=== PATIENT | male | born 1975 | race Caucasian/White ===

== ENCOUNTER 2024-09-16 17:48 | Emergency (ER) | payer OTHER, SELFPAY ==
[2024-09-16 18:12] VITALS: BP 115/78
--- NOTE | 2024-09-16 18:19 | ED.GENMED ---
ED Provider Triage
<Florence Santiago PA-C - Last Filed: 09/16/24 18:21>
-
Patient seen by provider in Triage?: Seen in Triage
Attestation: A medical screening examination has been initiated by a qualified medical provider. Based on the assessment performed at this time, it has been determined that an emergent medical condition may exist and the patient has been informed
that further medical evaluation and possible additional diagnostic testing may be needed.
HPI: 49yoM here with vomiting, abd cramping, increased colostomy output x 3 days. Also feeling warm the past few days. +Sick contacts. Hx of colorectal cancer s/p resection with colostomy in place.
GENERAL: Alert , in no apparent distress
EYE: No visual abnormalities.
NECK: Trachea midline
ENT: No visible abnormalities.
LUNGS: No acute respiratory distress
NEUROLOGICAL: Alert and oriented
SKIN: Skin intact. No visible changes.
MUSCULOSKELETAL: Moving extremities normally
PSYCH: Normal and appropriate interaction.
This is a medical evaluation conducted in person to initiate diagnostic evaluation and provide initial therapeutics. Please see further documentation by the treating clinician.
Abdominal labs, magnesium, COVID/flu swab ordered.
History of Present Illness
<Florence Santiago PA-C - Last Filed: 09/16/24 18:21>
General
Chief Complaint: Dehydration Symptoms
Time Seen by Provider: 09/16/24 19:25
<Acosta Arteaga DO - Last Filed: 09/17/24 21:43>
History of Present Illness
History of Present Illness:
TIME OF INITIAL ENCOUNTER: 7:30 PM
HPI: Patient has history of colostomy (Crohn's disease, colitis, rectal cancer) and presents due to increased colostomy output and vomiting over the last couple of days. Davy� has similar symptoms. He feels somewhat dehydrated. He has been
having some abdominal cramping.
EXAM:
GENERAL: Well appearing in no distress
HEENT: Moist oral mucosa
CARDIOVASCULAR: No murmurs, borderline tachycardic heart rate, regular rhythm, No chest wall tenderness
PULMONARY: No respiratory distress, breath sounds are clear and equal
ABDOMEN: Soft with no peritoneal signs, no tenderness, colostomy bag noted�nearly full, surgical scars noted
NEUROLOGIC: Excellent strength all extremities, no coordination deficits
PSYCHIATRIC: Appropriate mental status, normal insight and judgement
EXTREMITIES: Nontender, no edema, moves all extremities equally
SKIN: No rash, no lesions
NUMBER AND COMPLEXITY OF PROBLEMS ADDRESSED AT THE ENCOUNTER
� Chronic conditions affecting care: Crohn's/colitis, history of rectal cancer
� Acute Exacerbation and/or Progression of Chronic Illness: This is an acute problem
� Differential Diagnosis includes: Diarrhea/vomiting viral illness, foodborne illness, JOE, dehydration, electrolyte abnormality
AMOUNT AND/OR COMPLEXITY OF DATA TO BE REVIEWED AND ANALYZED
� I performed an independent evaluation of and my interpretation is:
EKG:
CT:
X-rays:
Laboratory Studies: White count 10.0, hemoglobin 15.2, sodium 129, potassium 3.3, creatinine 4.1
Other:
� Review of other/old records: I reviewed records, the patient was admitted in 2012 with a Crohn's flare/SBO
� Clinical information was obtained by an independent historian: None needed
� Prescriptions/Medications Considered but not given:
� Further testing considered but not performed: Strongly recommended patient to be kept in the hospital however the patient refuses
RISK OF COMPLICATIONS AND/OR MORBIDITY OR MORTALITY OF PATIENT MANAGEMENT
� Social determinants of health affecting care: Lives at home, works
� Discussion with other providers:
� Escalation of care including admission/observation vs risk of discharge considered: I informed patient of his high creatinine at over 4 which is acute�I therefore recommended that he stays in the hospital. He tells me that he
absolutely cannot stay in the hospital as he has to work. He verbalized understanding of my reasoning for keeping him here in the hospital. We will give 2 L of IV fluid and also give IV potassium.
ANY OTHER UPDATES:
9:15 PM: I reassessed patient. He still is adamant about not staying in the hospital. I did inform the need of having repeat studies through primary care doctor to ensure that his chemistries have improved.
10:10 PM: I reassessed patient again. He does continue to feel improved and still strongly wants to go home.
Past History
<Florence Santiago PA-C - Last Filed: 09/16/24 18:21>
Past History
ED Past Medical History: CAD, Cancer (Rectal cancer) and Other (Kidney stones,Crohn's disease, hepatitis C)
ED Past Surgical History: Appendectomy and Bowel resection (Colon Resection)
Social History
Tobacco: Smoker
Alcohol: Occasional
Drug: None
Personal:
Living: alone
Employment: Employed
Family History
Family History: Other (Noncontributory)
Phy Exam
<Acosta Arteaga DO - Last Filed: 09/17/24 21:43>
Physical Exam
Physical Exam:
See HPI
Course
<Florence Santiago PA-C - Last Filed: 09/16/24 18:21>
Orders/Labs/Results
Orders:
Orders
09/16/24 18:24
COVID-19 Antigen Urgent
Source: Nasal Swab
Complete Blood Count/With Diff Urgent
Comprehensive Metabolic Panel Urgent
Lipase Urgent
Magnesium Urgent
Influenza A+B Rapid Molecular Urgent
PAUL Source: Nasal Swab
Specimen Description:
09/16/24 19:27
0.9% Sodium Chloride 1000 ml [Nss] 1,000 ml IV BOLUS
0.9% Sodium Chloride 1000 ml [Nss] 1,000 ml IV BOLUS
09/16/24 20:08
Potassium Chloride [KCl] 20 meq 0.9% Sodium Chloride 150 ml [Nss] 150 ml IV NOW
09/16/24 21:18
Norovirus by PCR Urgent
PAUL Source: Feces/Stool
Specimen Description:
Date Specimen was Collected: 09/16/24
Time Specimen was Collected: 21:17
Abnormal Lab Results
09/16/24
18:24
Absolute Neuts (auto) 7.7 H 10^3/uL
(1.4-6.5)
Absolute Monos (auto) 0.9 H 10^3/uL
(0.1-0.6)
Neutrophils % 76.7 H %
(42.2-75.2)
Lymphocytes % 12.5 L %
(20.5-51.1)
Sodium 129 L mmol/L
(135-145)
Potassium 3.3 L mmol/L
(3.5-5.1)
Chloride 90 L mmol/L
(98-107)
BUN 30 H mg/dl
(9-20)
Creatinine 4.1 H* mg/dL
(0.7-1.3)
09/16/24 18:24
09/16/24 18:24
Vital Signs
Initial and Last Documented VS:
Initial Vital Signs
Temp Pulse Resp BP Pulse Ox
36.7 C 105 17 115/78 99
09/16/24 18:12 09/16/24 18:12 09/16/24 18:12 09/16/24 18:12 09/16/24 18:12
Last Documented Vital Signs
Temp Pulse Resp BP Pulse Ox
36.7 C 102 31 123/91 99
09/16/24 18:12 09/16/24 22:15 09/16/24 22:15 09/16/24 20:00 09/16/24 21:00
<Acosta Arteaga DO - Last Filed: 09/17/24 21:43>
Orders/Labs/Results
Orders:
Orders
09/16/24 18:24
COVID-19 Antigen Urgent
Source: Nasal Swab
Complete Blood Count/With Diff Urgent
Comprehensive Metabolic Panel Urgent
Lipase Urgent
Magnesium Urgent
Influenza A+B Rapid Molecular Urgent
PAUL Source: Nasal Swab
Specimen Description:
09/16/24 19:27
0.9% Sodium Chloride 1000 ml [Nss] 1,000 ml IV BOLUS
0.9% Sodium Chloride 1000 ml [Nss] 1,000 ml IV BOLUS
09/16/24 20:08
Potassium Chloride [KCl] 20 meq 0.9% Sodium Chloride 150 ml [Nss] 150 ml IV NOW
09/16/24 21:18
Norovirus by PCR Urgent
PAUL Source: Feces/Stool
Specimen Description:
Date Specimen was Collected: 09/16/24
Time Specimen was Collected: 21:17
Abnormal Lab Results
09/16/24
18:24
Absolute Neuts (auto) 7.7 H 10^3/uL
(1.4-6.5)
Absolute Monos (auto) 0.9 H 10^3/uL
(0.1-0.6)
Neutrophils % 76.7 H %
(42.2-75.2)
Lymphocytes % 12.5 L %
(20.5-51.1)
Sodium 129 L mmol/L
(135-145)
Potassium 3.3 L mmol/L
(3.5-5.1)
Chloride 90 L mmol/L
(98-107)
BUN 30 H mg/dl
(9-20)
Creatinine 4.1 H* mg/dL
(0.7-1.3)
09/16/24 18:24
09/16/24 18:24
Vital Signs
Initial and Last Documented VS:
Initial Vital Signs
Temp Pulse Resp BP Pulse Ox
36.7 C 105 17 115/78 99
09/16/24 18:12 09/16/24 18:12 09/16/24 18:12 09/16/24 18:12 09/16/24 18:12
Last Documented Vital Signs
Temp Pulse Resp BP Pulse Ox
36.7 C 102 31 123/91 99
09/16/24 18:12 09/16/24 22:15 09/16/24 22:15 09/16/24 20:00 09/16/24 21:00
<Acosta Arteaga DO - Last Filed: 09/17/24 21:43>
*Critical Care Note
Total Time (30-74mins, 75-104mins- exclusive of procedures): Not Applicable
ED Attending Note
<Florence Santiago PA-C - Last Filed: 09/16/24 18:21>
-
Portions of this chart may have been created with voice recognition software.� Occasional wrong word or��sound alike� substitutions may have occurred due to the inherent limitations of voice recognition software.
Discharge Plan
Departure
Patient Disposition: Home (Routine Discharge)
Date of Disposition: 09/16/24
Time of Disposition: 22:04
Patient with high blood pressure during this ER visit?: Yes
Discharge Problem:
Acute kidney injury
Prescriptions:
No Action
ondansetron HCl 4 MG tablet
4 mg PO Q8HPRN PRN (Reason: nausea)
multivit with min-folic acid [Adult Multivitamin Gummies] 200 MCG tablet,chewable
200 mcg PO DAILY
potassium chloride [Klor-Con] 20 mEq packet
20 meq PO DAILY Qty: 10 0RF
Referrals:
Jonathan Horton MD [Family Provider] -
Activity Restrictions/Additional Instructions:
Your kidney function is markedly impaired tonight with a creatinine of 4.1 (normal range to be 0.7-1.3). Your potassium level is also a little bit low 3.3�we have given you some IV potassium. We gave you 2 L of IV fluids. This should help the
kidney function. I offered and recommended that we keep you here in the hospital however you have refused. I recommend that you follow-up with your primary care doctor and receive repeat blood work next week to ensure that the kidney function is
improving. Return here if worse or other concerns.
Interventions
Interventions:
*Risk Screen - Suicide Last Done: 09/16/24 18:14
*General Assessment Last Done: 09/16/24 18:14
*Neglect/Abuse Screening Last Done: 09/16/24 18:14
ED- Fall Risk Assessment Last Done: 09/16/24 19:50
*ED COVID-19 Vaccine History Last Done: 09/16/24 18:14
*Nursing Disposition Last Done: 09/16/24 22:34
ED- Cardiac Assessment Last Done: 09/16/24 19:50
ED- Neurological Assessment Last Done: 09/16/24 19:50
ED- Pulmonary Assessment Last Done: 09/16/24 19:50
Discharge Date and Time
Discharge Date/Time: 09/16/24 22:35
Print Language: MAURITANIAN
[2024-09-16 18:36] LABS: % Basophils 0.2 % (0-2); % Eosinophils 1.4 % (0-6); % Immature Granulocytes 0.4 % (0-0.5); % Lymphocytes 12.5 % (20.5-51.1); % Monocytes 8.8 % (1.7-9.3); % Neutrophils 76.7 % (42.2-75.2); Absolute Eosinophils 0.1 10^3/uL (0-0.7); Absolute Lymphocytes 1.3 10^3/uL (1.2-3.4); Absolute Monocytes 0.9 10^3/uL (0.1-0.6); Absolute Neutrophils 7.7 10^3/uL (1.4-6.5); Hematocrit 44.9 % (39.0-52.0); Hemoglobin 15.2 g/dL (13.0-18.0); Mean Corp Hgb Conc. 33.9 g/dL (33.0-37.0); Mean Corpuscular Hgb 28.1 pg (27.0-31.0); Mean Platelet Volume 8.5 fL (7.4-10.4); Nucleated Red Blood Cells % 0 % (-); Platelet Count 310 10^3/uL (130-400); Red Blood Cell Count 5.41 10^6/uL (4.70-6.10); Red Cell Dist. Width 14.4 % (11.5-14.5)
[2024-09-16 18:53] LABS: ALT (SGPT) 50 U/L (0-50); AST (SGOT) 53 U/L (17-59); Albumin 4.6 g/dl (3.5-5.0); Alkaline Phosphatase 95 U/L (38-126); Blood Urea Nitrogen 30 mg/dl (9-20); Calcium 8.8 mg/dl (8.4-10.2); Carbon Dioxide 22 mmol/L (22-30); Chloride 90 mmol/L (98-107); Glucose 96 mg/dl (70-99); Lipase 188 U/L (23-300); Magnesium 2.1 mg/dl (1.6-2.3); Potassium 3.3 mmol/L (3.5-5.1); Sodium 129 mmol/L (135-145); Total Bilirubin 0.5 mg/dl (0.2-1.3); Total Protein 7.6 g/dl (6.3-8.2); eGFR 16.97
[2024-09-16 19:09] LABS: COVID-19 Antigen Negative (Negative)
[2024-09-16 19:29] VITALS: BP 131/98
[2024-09-16 19:50] VITALS: BMI 19.3
[2024-09-16] MEDS: NSS 1000 IV ×2 (19:50→21:06)
[2024-09-16 20:00] VITALS: BP 123/91
[2024-09-16] MEDS: KCL 160 MEQ IV (21:05)
== END 2024-09-16 22:35 | disposition home or self-care (01) ==
LOC: EMR 17:48
PROVIDERS: Physician Assistant; EMERGENCY PHYSICIAN Emergency Medicine; FAMILY PHYSICIAN Internal Medicine
DX: N17.9 Acute kidney failure, unspecified (principal); K50.90 Crohn's disease, unspecified, without complications; I25.10 Atherosclerotic heart disease of native coronary artery without angina pectoris; F17.200 Nicotine dependence, unspecified, uncomplicated; Z85.048 Personal history of other malignant neoplasm of rectum, rectosigmoid junction, and anus; Z93.3 Colostomy status; Z86.19 Personal history of other infectious and parasitic diseases; Z90.49 Acquired absence of other specified parts of digestive tract
CPT/HCPCS: 96374; 96361; 99284; 80053; 83690; 83735; 85025; 87502; 87798; 87811

== ENCOUNTER → 2025-07-16 16:46 | Outpatient (REF) | payer OTHER, SELFPAY | LOC: RAD 16:46 | PROVIDERS: FAMILY PHYSICIAN Physician Assistant | DX: C20 Malignant neoplasm of rectum (principal) | CPT/HCPCS: 71260; 74177; Q9967 ==